=== PATIENT | female | born 1960 | race African-American/Black ===

== ENCOUNTER 2020-01-19 11:32 | Emergency (ER) | payer MEDICARE, OTHER ==
[~2020-01-19] VITALS: Ht 170.2 cm; Wt 121.6 kg
--- NOTE | 2020-01-19 11:50 | Emergency Department Note ---
History of Present Illnes History of Present Illness Chief Complaint: General Medicine Complaints History of Present Illness This is a 59 year old female Chief Complaint Comment SENT BY DR ACE R/O CVA. L arm pain and held flexed for 7 days. No other symptoms. This has happened before and was 2/2 a stroke last year. No trauma Historian: Patient Arrival Mode: Car [facility] Customer Service Required: No Onset (how long ago): week(s) (1) Location: L shoulder Quality: Sharp Radiation: Reports non-radiation Severity: moderate Onset quality: sudden Duration (how long): week(s) (1) Timing of current episode: constant Progression: unchanged Chronicity: new Context: Denies recent illness, Denies recent surgery Relieving factors: none Exacerbating factors: none Associated symptoms: Reports denies other symptoms Treatments prior to arrival: none Past Medical/Family History Physician Review I have reviewed the patient's past medical and family history. Any updates have been documented here. Past Medical History Recent Fever: No Clinical Suspicion of Infectio: No New/Unexplained Change in Ment: No Review of Systems Review of Systems Constitutional: Reports no symptoms EENTM: Reports no symptoms Cardiovascular: Reports no symptoms Respiratory: Reports no symptoms Gastrointestinal: Reports no symptoms Genitourinary: Reports no symptoms Musculoskeletal: Reports as per HPI, Reports other (L sholder pain) Integumentary: Reports no symptoms Neurological: Reports no symptoms Psychological: Reports no symptoms Endocrine: Reports no symptoms Hematological/Lymphatic: Reports no symptoms Physical Exam Related Data Allergies: Coded Allergies: No Known Allergies (Unverified , 01/19/20) Triage Vital Signs Vital Signs Date Time Temp Pulse Resp B/P (MAP) Pulse Ox O2 Delivery O2 Flow Rate FiO2 01/19/20 11:34 Vital signs reviewed: Yes Physical Exam CONSTITUTIONAL Constitutional: Present well-developed, Present well-nourished HENT HENT: Present normocephalic, Present atraumatic, Present oropharynx clear/moist, Present nose normal HENT L/R: Present left ext ear normal, Present right ext ear normal EYES Eyes: Reports PERRL, Reports conjunctivae normal NECK Neck: Present ROM normal PULMONARY Pulmonary: Present effort normal, Present breath sounds normal CARDIOVASCULAR Cardiovascular: Present regular rhythm, Present heart sounds normal, Present capillary refill normal, Present normal rate GASTROINTESTINAL Abdominal: Present soft, Present nontender, Present bowel sounds normal GENITOURINARY Genitourinary: Present exam deferred SKIN Skin: Present warm, Present dry MUSCULOSKELETAL Musculoskeletal: Present ROM normal NEUROLOGICAL Neurological: Present alert, Present oriented x 3, Present weakness (L arm d iffusely and L leg); Absent no gross motor or sensory deficits PSYCHOLOGICAL Psychological: Present mood/affect normal, Present judgement normal Assessment & Plan Medical Decision Making MDM 59 y.o F presents for L arm weakness. Examination shows left arm is flexed and contracted as well as left leg weakness. Patient states this is similar to her prior stroke. It has been present for a week and been unchanging. Workup shows age-indeterminate right sided stroke. I discussed results with patient and offered transfer for neurology consultation and further MRIs. Patient prefers to be seen by an outpatient neurologist. As symptoms occurred 1 week ago and is consistent with her prior stroke this is a reasonable option. She was given an aspirin and is already on blood thinners. I discussed with her that if she is not transferred and admitted she may suffer permanent loss of function but that this may be already the case as symptoms started 1 week ago. Will refer to neurology. Patient was re-examined and she is appropriate for discharge. Instructed her to refrain from smoking. Reassessment Reassessment time: 13:06 Reassessment Pain improved Assessment & Plan Final Impression: (1) Left arm weakness (2) Left leg weakness (3) History of stroke Depart Disposition: HOME, SELF-CARE Last Vital Signs Date Time Temp Pulse Resp B/P (MAP) Pulse Ox O2 Delivery O2 Flow Rate FiO2 01/19/20 11:34 DEBBIE POND MD Jan 19, 2020 11:50
--- OUTSIDE RECORDS SUMMARY | 2020-01-19 12:20 | XMS REPORT | Continuity of Care Document ---
Author Author [employer] Organization [employer] Address Unknown Phone Unavailable Care Team Providers Care In Flight Technician Name Role Phone [facility] [employer] Unavailable Un available Problems Problem Status Onset Date Classification Date Reported Comments Source Breast cancer screening Active Diagnosis 06/24/2019 [facility] Obesity (BMI 30-39.9) Active Diagnosis 06/24/2019 [facility] BMI 30.0-30.9,adult Active Diagnosis 06/24/2019 [facility] Multiple personality disorder Active Problem [facility] History of DVT (deep vein thrombosis) Active Diagnosis 06/24/2019 [facility] Irritable bowel syndrome with constipation Active Problem 06/24/2019 [facility] History of pulmonary embolus (PE) Active Diagnosis 0 06/24/2019 [facility] Other insomnia Active Problem 06/24/2019 [facility] Essential hypertension Active Problem 06/24/2019 [facility] Protein C deficiency Active Problem 06/24/2019 [facility] Paranoid schizophrenia Active Problem 06/24/2019 [facility] Bipolar disorder, current episode mixed, severe, with psychotic features Active Prob greg 06/24/2019 [facility] Mixed hyperlipidemia Active Problem 06/24/2019 [facility] Concern about STD in female without diagnosis Active Diagnosis 06/24/2019 [facility] Medications Medication Details Route Status Patient Instructions Ordering Provider Order Date Source Paolo Aspirin EC Low Dose 1 ta blet Orally Active 81 MG Orally Once a day [facility] Ziprasidone HCl 1 capsule with food Orally Active 20 mg Orally Twice a day [facility] Eliquis 2 capsule Orally Active 5 MG Orally daily [facility] Primary phentermine 1poq NA Active 37.5 daily [facility] Triamterene-HCTZ 1 tablet in t he morning Orally Active 75-50 MG Orally Once a day [facility] Potassium 1 tab Oral Active 10 mg Oral daily [facility] Lamotrigine 2tablet Orally Active 100 mg Orally Once a da y [facility] Trazodone HCl 3 tablet at bedt tamera Orally Active 150 MG Orally Once a day [facility] Furosemide 1 tab Oral Active 20 mg Oral daily [facility] Ambien 1 tablet at bedtime Orally Active 5 MG Orally Once a day [facility] Linzess 1 capsule at least 30 minutes before the first meal of the day on an empty stomach Orally Active 290 MCG Orally Once a d ay [facility] Rosuvastatin Calcium 1 tablet Orally Active 20 MG Orally Once a day [facility] Sulfamethoxazole 1 null Orally Active 500 MG Orally Four time s a day [facility] Allergies, Adverse Reactions, Alerts Substance Category Reaction Severity Reaction type Status Date Reported Comments Source N.K.D.A. Adverse Reaction Info Not Available Adverse Reaction 06/23/2019 [facility] Immunizations No Data Provided for This Section Results No Data Provided for This Section Pathology Reports No Data Provided for This Section Diagnostic Reports No Data Provided for This Section Consultation Notes No Data Provided for This Section Discharge Summaries No Data Provided for This Section History and Physicals No Data Provided for This Section Vital Signs Vital Sign Value Date Comments Source Weight 228.2 06/23/2019 [facility] Height 67 0 06/23/2019 [facility] Temperature Oral (F) 97.0 F 06/23/2019 [facility] Heart Rate 87 06/23/2019 [facility] Diastolic (mm Hg) 91 06/23/2019 [facility] Systolic (mm Hg) 143 06/23/2019 [facility] Encounters No Data Provided for This Section Procedures No Data Provided for This Section Assessment and Plan No Data Provided for This Section Plan of Care No Data Provided for This Section Social History No Data Provided for This Section Family History No Data Provided for This Section Advance Directives No Data Provided for This Section Functional Status No Data Provided for This Section
--- OUTSIDE RECORDS SUMMARY | 2020-01-19 12:21 | XMS REPORT | Continuity of Care Document ---
Author Author [facility] Organization [facility] Address [address] [place] [address] Phone Unavailable Care Team Providers Care Mainspring Barrel Assembly Cleaner Name Role Phone Unavailable Unavailable Payers Payer Name Policy Type Policy Number Effective Date Expiration Date S ource Problems Condition Name Condition Details Condition Category Status Onset Date Resolution Date Last Treatment Date Treating Clinician Comments Source Breast cancer screening [facility] cancer screening Active Diagnosis 06/24/2019 [facility] Primary Diagnosis Active 2019-06-24 03:46:20 Yumi Bunch Obesity (BMI 30-39.9) Obes ity (BMI 30-39.9) Active Diagnosis 06/24/2019 [facility] Primary Diagnosis Active 2019-06-24 0 3:46:20 Yumi Bunch BMI 30.0-30.9,adult BMI 30.0-30.9,adult Active Diagnosis 06/24/2019 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 Primary Problem Active 2019-06-24 03:46:20 Yumi Bunch History of DVT (deep vein thrombosis) History of DVT (deep vein thrombosis) Active Diagnosis 06/24/2019 [facility] Primary Diagnosis Active 2019-06-24 03:46:20 Bahman Bunch Irritable bowel syndrome with constipation Irritable bowel syndrome with constipation Active Problem 06/24/2019 [facility] Primary Problem Active 2019-06-24 03:46:20 Yumi Bunch History of pulmonary embolus (PE) History of pulmonary embolus (PE) Active Diagnosis 06/24/2019 [facility] Primary Diagnosis Active 2019-06-24 03:46:20 Yumi Bunch Other insomnia Othe r insomnia Active Problem 06/24/2019 [facility] Primary Problem Active 2019-06-24 03:46:20 [facility] Essential hypertension Esse ntial hypertension Active Problem 06/24/2019 [facility] Primary Problem Active 2019-06-24 03: 46:20 [facility] Protein C deficiency Prot ein C deficiency Active Problem 06/24/2019 [facility] Primary Problem Active 2019-06-24 03:46:20 [facility] Paranoid schizophrenia Para noid schizophrenia Active Problem 06/24/2019 [facility] Primary Problem Active 2019-06-24 03: 46:20 [facility] Bipolar disorder, current episode mixed, severe, with psychotic features Bipolar disorder, current episode mixed, severe, with psychotic features Active Problem 06/24/2019 [facility] Primary Problem Active 2019-06-24 03:46:20 [facility] Mixed hyperlipidemia Mixe d hyperlipidemia Active Problem 06/24/2019 [facility] Primary Problem Active 2019-06-24 03:46:20 [facility] Concern about STD in female without diagnosis Concern about STD in female without diagnosis Active Diagnosis 06/24/2019 [facility] Primary Diagnosis Active 2019-06-24 03:46:20 [facility] Allergies, Adverse Reactions, Alerts Allergy Name Allergy Type Status Severity Reaction(s) Onset Date Inacti ve Date Treating Clinician Comments Source No Known Allergies DA Active U 2019-11-07 00:00:00 [facility] N.K.ThomasA. N.K.Maia.A. Active Info Not Available 2019-06-23 00:00:00 [facility] Medications Ordered Medication Name Filled Medication Name Start Date Stop Da te Current Medication? Ordering Clinician Indication Dosage Frequency Signature (SIG) Comments Components Source Paolo Aspirin EC Low Dose 2019-06-24 03:46:20 Yes Lillie Ruddy 1 tablet [facility] Ziprasidone HCl 2019-06-24 03:46:20 Yes Lillie Ruddy 1 capsule with food [facility] Eliquis 2019-06-24 03:46:20 Yes Lillie Ruddy 2 ca psule [facility] phentermine 2019-06-24 03:46:20 Yes Lillie Ruddy 1poq [facility] Triamterene-HCTZ 2019-06-24 03:46:20 Yes Lillie Ruddy 1 tablet in the morning [facility] Potassium 2019-06-24 03:46:20 Yes Lillie Ruddy 1 tab [facility] Lamotrigine 2019-06-24 03:46:20 Yes Lillie Fox 2tablet [facility] Trazodone HCl 2019-06-24 03:46:20 Yes Lillie Ruddy 3 tablet at bedtime [facility] Furosemide 2019-06-24 03:46:20 Yes Lillie Ruddy 1 tab [facility] Ambien 2019-06-24 03:46:20 Yes Lillie Ruddy 1 tab let at bedtime [facility] Linzess 2019-06-24 03:46:20 Yes Lillie Ruddy 1 capsule at least 30 minutes before the first meal of the day on an empty stomach [facility] Rosuvastatin Calcium 2019-06-24 03:46:20 Yes Lillie Ruddy 1 tablet [facility] Sulfamethoxazole 2019-06-24 03:46:20 Yes Lillie Ruddy 1 null [facility] Vital Signs Vital Name Observation Time Observation Value Comments Source Weight 2019-06-23 19:00:00 [facility] Height 2019-06-23 19:00:00 [facility] Temperature Oral (F) 2019-06-23 19:00:00 97.0 F [facility] Heart Rate 2019-06-23 19:00:00 [facility] Diastolic (mm Hg) 2019-06-23 19:00:00 [facility] Systolic (mm Hg) 2019-06-23 19:00:00 [facility] Procedures This patient has no known procedures. Encounters Start Date/Time End Date/Time Encounter Type Admission Type [facility] Care Department Encounter ID Source 2019-06-23 13:00:00 2019-06-23 13:00:[address] [facility] Primary Care [facility] [id number] eClinicalWo rks 2018-10-24 19:10:00 2018-10-24 19:10:00 Emergency E MHBL MHBL [id number] MHBL 2018-10-19 02:45:00 2018-10-19 02:45:00 Emergency E BL BL [id number] BL Results Test Description Test Time Test Comments Results Result Comments Source BASIC METABOLIC PANEL 2020-01-16 01:15:00 Test Item SODIUM (test code = NA) 134 mmol/L 134-147 N POTASSIUM (test code = K) 4.2 mmol/L 3.4-5.0 N CHLORIDE (test code = CL) 104 mmol/L 100-108 N CARBON DIOXIDE (test code = CO2) 26 mmol/L 21-32 N ANION GAP (test code = GAP) 4.0 GAP calc 4.0-15.0 N GLUCOSE (test code = GLU) 95 MG/DL 70-110 N BLOOD UREA NITROGEN (test code = BUN) 10 MG/DL 7-18 N GLOMERULAR FILTRATION RATE (test code = GFR) 54 estGFR >60 L CREATININE (test code = CREAT) 1.3 MG/DL 0.6-1.0 H CALCIUM (test code = CA) 9.5 MG/DL 8.5-10.1 N CREATINE KINASE (CK)2020-01-16 01:15:00* Test Item Value Reference Range Interpretation Comments CREATINE KINASE (CK) (test code = CK) 167 Unit/L 26-192 N BASIC METABOLIC [id number] 01:08:00* Test Item Value Reference Range Interpretation Comments SODIUM (test code = NA) 134 mmol/L 134-147 N POTASSIUM (test code = K) 4.2 mmol/L 3.4-5.0 N CHLORIDE (test code = CL) 104 mmol/L 100-108 N CARBON DIOXIDE (test code = CO2) 26 mmol/L 21-32 N ANION GAP (test code = GAP) 4.0 GAP calc 4.0-15.0 N GLUCOSE (test code = GLU) 95 MG/DL 70-110 N BLOOD UREA NITROGEN (test code = BUN) 10 MG/DL 7-18 N GLOMERULAR FILTRATION RATE (test code = GFR) estGFR >60 CREATININE (test code = CREAT) MG/DL 0.6-1.0 CALCIUM (test code = CA) 9.5 MG/DL 8.5-10.1 N CREATINE KINASE (CK)2020-01-16 01:08:00* Test Item Value Reference Range Interpretation Comments CREATINE KINASE (CK) (test code = CK) Unit/L 26-192 CBC W/O [id number] 01:02:00* Test Item Value Reference Range Interpretation Comments WHITE BLOOD CELL (test code = WBC) 4.8 K/mm3 3.5-11.0 N RED BLOOD CELL (test code = RBC) 4.23 M/mm3 4.70-6.10 L HEMOGLOBIN (test code = HGB) 11.8 G/DL 10.4-14.9 N HEMATOCRIT (test code = HCT) 35.3 % 31.5-44.1 N MEAN CELL VOLUME (test code = MCV) 83.5 Fl 84.5-98.6 L MEAN CELL HGB (test code = MCH) 27.9 pg 27.0-34.2 N MEAN CELL HGB CONCETRATION (test code = MCHC) 33.4 G/DL 31.5-34. 0 N RED CELL DISTRIBUTION WIDTH (test code = RDW) 14.8 SD 11.5-14. 5 H PLATELET COUNT (test code = PLT) 273 K/mm3 150-450 N MEAN PLATELET VOLUME (test code = MPV) 8.90 fL 7.0-10.5 N [id number] 02:09:00* Test Item Value Reference Range Interpretation Comments TROPONIN-I (test code = TROPI) < 0.015 NG/ML 0.000-0.045 N Negative: </= 0.045 Positive: >/= 0.046 Correlation with serial results, other cardiac markers, and clinical findings is necessary to determine the clinical significance of this result. Quantitative results using different methodologies should not be compared to one another as numerical results may varyby method. Completed by Nursing: NOBASIC METABOLIC [id number] 02:00:00* Test Item Value Reference Range Interpretation Comments SODIUM (test code = NA) 137 mmol/L 134-147 N POTASSIUM (test code = K) 3.7 mmol/L 3.4-5.0 N CHLORIDE (test code = CL) 105 mmol/L 100-108 N CARBON DIOXIDE (test code = CO2) 26 mmol/L 21-32 N ANION GAP (test code = GAP) 6.0 GAP calc 4.0-15.0 N GLUCOSE (test code = GLU) 102 MG/DL 70-110 N BLOOD UREA NITROGEN (test code = BUN) 14 MG/DL 7-18 N GLOMERULAR FILTRATION RATE (test code = GFR) >=60 max estimate estG FR >60 CREATININE (test code = CREAT) 1.1 MG/DL 0.6-1.0 H CALCIUM (test code = CA) 8.6 MG/DL 8.5-10.1 N CREATINE KINASE (CK)2019-11-07 02:00:00* Test Item Value Reference Range Interpretation Comments CREATINE KINASE (CK) (test code = CK) 124 Unit/L 26-192 N NT PRO-BRAIN NATRIURETIC [id number] 02:00:00* Test Item Value Reference Range Interpretation Comments NT PRO-BRAIN NATRIURETIC PEPTI (test code = PROBNP) 41 PG/ML 0- 100 N BASIC METABOLIC [id number] 01:54:00* Test Item Value Reference Range Interpretation Comments SODIUM (test code = NA) 137 mmol/L 134-147 N POTASSIUM (test code = K) 3.7 mmol/L 3.4-5.0 N CHLORIDE (test code = CL) 105 mmol/L 100-108 N CARBON DIOXIDE (test code = CO2) 26 mmol/L 21-32 N ANION GAP (test code = GAP) 6.0 GAP calc 4.0-15.0 N GLUCOSE (test code = GLU) 102 MG/DL 70-110 N BLOOD UREA NITROGEN (test code = BUN) 14 MG/DL 7-18 N GLOMERULAR FILTRATION RATE (test code = GFR) estGFR >60 CREATININE (test code = CREAT) MG/DL 0.6-1.0 CALCIUM (test code = CA) 8.6 MG/DL 8.5-10.1 N CREATINE KINASE (CK)2019-11-07 01:54:00* Test Item Value Reference Range Interpretation Comments CREATINE KINASE (CK) (test code = CK) Unit/L 26-192 NT PRO-BRAIN NATRIURETIC [id number] 01:54:00* Test Item Value Reference Range Interpretation Comments NT PRO-BRAIN NATRIURETIC PEPTI (test code = PROBNP) PG/ML 0- 100 CBC W/O [id number] 01:46:00* Test Item Value Reference Range Interpretation Comments WHITE BLOOD CELL (test code = WBC) 5.9 K/mm3 3.5-11.0 N RED BLOOD CELL (test code = RBC) 4.14 M/mm3 4.70-6.10 L HEMOGLOBIN (test code = HGB) 11.4 G/DL 10.4-14.9 N HEMATOCRIT (test code = HCT) 34.9 % 31.5-44.1 N MEAN CELL VOLUME (test code = MCV) 84.3 Fl 84.5-98.6 L MEAN CELL HGB (test code = MCH) 27.5 pg 27.0-34.2 N MEAN CELL HGB CONCETRATION (test code = MCHC) 32.7 G/DL 31.5-34. 0 N RED CELL DISTRIBUTION WIDTH (test code = RDW) 14.6 SD 11.5-14. 5 H PLATELET COUNT (test code = PLT) 286 K/mm3 150-450 N MEAN PLATELET VOLUME (test code = MPV) 8.60 fL 7.0-10.5 N - XR CHEST 1 [id number] 00:38:00 Name: ABENA CURTIS [place] : 1960 Age/S: 59 / F [id number] [facility] Unit #: [id number] Loc: [place] [address] Phys: Aidee De Jesus MD Acct: [id number] Dis Date: Status: PRE ER PHONE #: [phone] Exam Date: 11/07/2019 0030 FAX #: Reason: SOB EXAMS: CPT: [id number] XR CHEST 1 V [id number] Fluoro Time: DAP (Gy m2): Air Kerma (mGy): Examination: One view chest x-ray Location code: H60 Comparison: None Discussion: Clinical history is remarkable for shortness of breath. Heart is normal in size. Lungs are clear of consolidating infiltrates. No masses, nodules or effusions are noted. Impression: 1. Normal one view chest x-ray. at 0038 Reported and signed by: Dewayne Farris M.D. CC: Aidee De Jesus MD PAGE 1 Signed Report Name: ABENA CURTIS [place] : 1960 Age/S: 59 / F [id number] [facility] Unit #: [id number] Loc: [place] [address] Phys: Aidee De Jesus MD Acct: [id number] Dis Date: Status: PRE ER PHONE #: [phone] Exam Date: 11/07/2019 0030 FAX #: Reason: SOB EXAMS: CPT: [id number] XR CHEST 1 V [id number] Fluoro Time: DAP (Gy m2): Air Kerma (mGy): <Continued> Technologist: Derrick Hair, RT(R)(CT) Trnscb Date/Time: 11/07/2019 (0038) [email or web address] Orig Print D/T: S: 11/07/2019 (0041) PAGE 2 Signed Report
[2020-01-19 12:36] LABS: BASOPHILS % 0.8 % (0.0-1.0); EOSINOPHILS % 0.8 % (0.0-6.0); HEMATOCRIT 39.8 % (34.2-44.1); HEMOGLOBIN 12.5 g/dL (12.0-16.0); LYMPHOCYTES # (AUTO) 1.9 (1.0-3.2); LYMPHOCYTES % 54.4 % (18.0-39.1); MEAN CORPUSCULAR HEMOGLOBIN 26.3 pg (28-32); MEAN CORPUSCULAR HGB CONC 31.4 g/dL (31-35); MEAN CORPUSCULAR VOLUME 83.6 fL (81-99); MONOCYTES # (AUTO) 0.2 (0.2-0.8); MONOCYTES % 6.8 % (4.4-11.3); NEUTROPHILS # (AUTO) 1.3 (2.1-6.9); NEUTROPHILS % 37.2 % (38.7-80.0); PLATELET COUNT 272 x10e3/uL (140-360); RED BLOOD COUNT 4.76 x10e6/uL (3.6-5.1)
--- NOTE | 2020-01-19 12:43 | Diagnostic Imaging Report ---
ADDENDUM #1 Dr. Jessi Bernstein discussed findings and recommendations with Dr. Horn on 01/19/2020 at 1249 hours. Signed by: Dr. Jessi Bernstein M.D. on 01/19/2020 12:50 PM ORIGINAL REPORT Examination: CT BRAIN WO CONTRAST History:Left arm tingling Comparison studies:None Technique: Axial images were obtained from the skull base to the vertex. Coronal and sagittal images reconstructed from the axial data. Dose modulation, iterative reconstruction, and/or weight based adjustment of the mA/kV was utilized to reduce the radiation dose to as low as reasonably achievable. Intravenous contrast: None Findings: Scalp: No abnormalities. Bones: No fractures, blastic or lytic lesions. Brain sulci: Appropriate for age. Ventricles: Normal in size and configuration. No hydrocephalus. Extra-axial space: No abnormalities. Parenchyma: Vague area of hypoattenuation in the cortical and subcortical white matter the right precentral gyrus (series 2, image #21 and 22). No masses, hemorrhage. Sellar/suprasellar region: CSF filled. Craniocervical junction: Patent foramen magnum. No Chiari one malformation. Incidental findings: None. Impression: Age indeterminate infarct in the right precentral gyrus. Consultation with neurology and contrast enhanced brain MRI is recommended for further evaluation. No hemorrhage. Signed by: Dr. Jessi Bernstein M.D. on 01/19/2020 12:40 PM
--- NOTE | 2020-01-19 12:52 | Diagnostic Imaging Report ---
EXAMINATION: SHOULDER LEFT COMPLETE, ELBOW LEFT COMPLETE INDICATION: Left shoulder pain COMPARISON: None FINDINGS: Internal and internal rotation radiographs of the left shoulder and AP, lateral and oblique radiographs of the left elbow were obtained. No acute fracture or dislocation. Alignment is anatomic. No substantial degenerative change. No elbow joint effusion. Soft tissues appear unremarkable. The partially visualized portions of the left lung are clear. IMPRESSION: No acute osseous injury of the left shoulder or elbow. Signed by: Stacie Kaur MD on 01/19/2020 12:48 PM
[2020-01-19 12:54] LABS: ALBUMIN 3.8 g/dL (3.5-5.0); ANION GAP 16.2 mmol/L (8-16); CALCIUM 9.9 mg/dL (8.4-10.2); CREATININE, SERUM 1.17 mg/dL (0.57-1.11); POTASSIUM 4.2 mmol/L (3.5-5.1)
[2020-01-19] MEDS ORDERED: ASPIRIN 325 MG TAB PO ONE (13:00)
== END 2020-01-19 13:45 | disposition home or self-care (01) ==
LOC: ER 12:18
DX: R53.1 Weakness (principal); I69.354 Hemiplegia and hemiparesis following cerebral infarction affecting left non-dominant side; R60.9 Edema, unspecified; Z79.01 Long term (current) use of anticoagulants; F17.210 Nicotine dependence, cigarettes, uncomplicated
CPT/HCPCS: 36415; 70450; 80053; 84484; 85025; 99284